=== PATIENT | female | born 1940 | race Caucasian/White ===

== ENCOUNTER 2017-09-07 08:00 | Outpatient (CLI) | payer MEDICARE, OTHER ==
[2017-09-07 19:00] LABS: BASOPHILS # (AUTO) 0.1 10^3/uL (0.0-0.1); EOSINOPHILS # (AUTO) 0.3 10^3/uL (0.0-0.7); EOSINOPHILS % (AUTO) 7.5 %; HGB - HEMOGLOBIN 12.4 g/dL (12.0-16.0); LYMPHOCYTES # (AUTO) 0.8 10^3/uL (1.5-3.5); LYMPHOCYTES % (AUTO) 20.9 %; MEAN CORPUSCULAR HEMOGLOBIN 27.2 pg (27.0-31.0); MEAN CORPUSCULAR VOLUME 84.8 fL (81.0-99.0); MEAN PLATELET VOLUME 9.9 fL (7.9-10.8); MONOCYTES # (AUTO) 0.3 10^3/uL (0.0-1.0); MONOCYTES % (AUTO) 7.8 %; NEUTROPHILS # (AUTO) 2.3 10^3/uL (1.5-6.6); NEUTROPHILS % (AUTO) 61.8 %; PLT - PLATELET COUNT 182 10^3/uL (130-450); RED BLOOD COUNT 4.56 10^6/uL (4.20-5.40); RED CELL DISTRIBUTION WIDTH 13.4 % (12.0-15.0); WHITE BLOOD COUNT 3.7 x10^3/uL (4.8-10.8)
[2017-09-07 19:15] LABS: ALBUMIN 4.8 g/dL (3.2-5.5); ALBUMIN/GLOBULIN RATIO 1.8 (1.0-2.2); ALKALINE PHOSPHATASE 38 IU/L (42-121); ALT ALANINE AMINOTRANSFERASE 32 IU/L (10-60); AST ASPARTATE AMINOTRANSFERASE 28 IU/L (10-42); BILIRUBIN,TOTAL 0.6 mg/dL (0.2-1.0); BUN - BLOOD UREA NITROGEN 23 mg/dL (6-20); CALCIUM 9.4 mg/dL (8.5-10.3); CARBON DIOXIDE - CO2 24 mmol/L (21-32); CHLORIDE 105 mmol/L (101-111); CHOL/HDL RATIO 3.4 (<4.4); CHOLESTEROL 131 mg/dL; CREATININE 1.2 mg/dL (0.4-1.0); GFR - MDRD 44 (>89); GLUCOSE 155 mg/dL (70-100); HDL CHOLESTEROL 39 mg/dL; LDL CHOLESTEROL,CALCULATED 57 mg/dL; LDL/HDL RATIO 1.5 (<4.4); SODIUM 137 mmol/L (135-145); TOTAL PROTEIN 7.5 g/dL (6.7-8.2); VLDL CHOLESTEROL 35 mg/dL
[2017-09-07 19:55] LABS: HEMOGLOBIN A1C 0.69 g/dL; HEMOGLOBIN A1C % 6.7 % (4.6-6.2)
== END 2017-09-07 08:01 | disposition home or self-care (01) ==
LOC: LAB.WCP 08:00
PROVIDERS: ATTEND Family Medicine
DX: I10 Essential (primary) hypertension (principal); E11.9 Type 2 diabetes mellitus without complications; E78.5 Hyperlipidemia, unspecified; E03.9 Hypothyroidism, unspecified
CPT/HCPCS: 36415; 80053; 80061; 82043; 83036; 83721; 84443; 85025

== ENCOUNTER 2018-04-30 08:00 | Outpatient (CLI) | payer MEDICARE, OTHER ==
[2018-04-30 12:35] LABS: MEAN CORPUSCULAR HGB CONC 33.1 g/dL (32.0-36.0); MEAN CORPUSCULAR VOLUME 84.6 fL (81.0-99.0); MEAN PLATELET VOLUME 9.7 fL (7.9-10.8); RED BLOOD COUNT 4.28 10^6/uL (4.20-5.40); WHITE BLOOD COUNT 3.5 x10^3/uL (4.8-10.8)
[2018-04-30 13:04] LABS: ALBUMIN 4.5 g/dL (3.2-5.5); ALBUMIN/GLOBULIN RATIO 1.5 (1.0-2.2); BILIRUBIN,TOTAL 0.7 mg/dL (0.2-1.0); CALCIUM 9.5 mg/dL (8.5-10.3); CREATININE 1.4 mg/dL (0.4-1.0); TOTAL PROTEIN 7.5 g/dL (6.7-8.2)
[2018-04-30 13:13] LABS: HB2 TOTAL 12.5 g/dL; HEMOGLOBIN A1C 0.64 g/dL; HEMOGLOBIN A1C % 6.8 % (4.6-6.2)
== END 2018-04-30 23:59 | disposition home or self-care (01) ==
LOC: LAB.WCP 08:00
PROVIDERS: ATTEND Nurse Practitioner
DX: E11.9 Type 2 diabetes mellitus without complications (principal); G62.9 Polyneuropathy, unspecified; I10 Essential (primary) hypertension
CPT/HCPCS: 36415; 80053; 82607; 83036; 85027

== ENCOUNTER 2018-05-06 13:42 | Outpatient (CLI) | payer MEDICARE, OTHER ==
--- NOTE | 2018-05-07 11:13 | DEXA Report ---
Reason: OSTEOPOROSIS NOS Procedure Date: 05/06/2018 Accession Number: [id number] / [id number] Procedure: DEX - Dexa Spine and/or Hip CPT Code: FULL RESULT: EXAM: Dexa Spine and/or Hip DATE: 05/06/2018 2:19 PM CLINICAL HISTORY: OSTEOPOROSIS NOS TECHNIQUE: Dual energy x-ray absorptiometry (DXA) was performed on a [employer] System. Regions measured are the AP Spine, femoral neck, and if needed forearm. COMPARISON: None. In accordance with the International Society for Clinical Densitometry (ISCD) guidelines, data from previous exams may be reanalyzed using current recommendations and techniques. This is done to allow a more accurate basis for comparison with the current study. FINDINGS: The data for the lumbar spine is as follows: BMD (g/cm/cm) T-SCORE Z-SCORE REGION L1 1.133 0.0 1.6 L2 1.179 -0.2 1.4 L3 0.963 -2.0 -0.4 L4 1.105 -0.8 0.8 TOTAL NOTE: All evaluable vertebrae are used for classification The data for the hip is as follows: BMD (g/cm/cm) T-SCORE Z-SCORE REGION Neck 0.716 -2.3 -0.4 TOTAL 0.808 -1.6 0.1 NOTE: The femoral neck or total proximal femur, whichever is lowest, is used for classification. IMPRESSION: THE WHO CLASSIFICATION BASED ON THE INTERNATIONAL REFERENCE STANDARD IS OSTEOPENIA. THE FRACTURE RISK IS INCREASED. RECOMMENDATION: Patients with diagnosis of osteoporosis or osteopenia should have regular bone mineral density assessment. For those eligible for Medicare, routine testing is allowed once every 2 years. Testing frequency can be increased for patients who have rapidly progressing disease or for those who are receiving medical therapy to restore bone mass. COMMENT: World Health Organization (WHO) definitions for osteoporosis and osteopenia: NORMAL BMD: T-score at -1.0 or higher, fracture risk is low OSTEOPENIA BMD: T-score between -1.0 and -2.5, fracture risk is increased. OSTEOPOROSIS BMD: T-score at -2.5 or lower, fracture risk is high. National Osteoporosis Foundation recommends: 1. Obtain adequate dietary calcium (at least 1200 mg per day) and vitamin D (400-800 international units per day). 2. Participate, as appropriate, in regular weightbearing and muscle-strengthening exercise. 3. Avoid tobacco use and reduce alcohol and caffeine intake. 4. For more detailed information see the website at www.NOF.org.
== END 2018-05-06 13:43 | disposition home or self-care (01) ==
LOC: DI 13:42
PROVIDERS: ATTEND Nurse Practitioner
DX: M85.88 Other specified disorders of bone density and structure, other site (principal)
CPT/HCPCS: 77080

== ENCOUNTER 2018-10-28 14:46 | Outpatient (CLI) | payer MEDICARE, OTHER ==
--- NOTE | 2018-10-28 15:38 | XRAY Report ---
Reason: KNEE JOINT PAIN,LEFT,ANKLE JOINT PAIN,LEFT Procedure Date: 10/28/2018 Accession Number: [id number] / [id number] Procedure: WCP - Ankle 2 View LT CPT Code: FULL RESULT: EXAM: LEFT ANKLE RADIOGRAPHY. EXAM DATE: 10/28/2018 02:58 PM. CLINICAL HISTORY: Knee joint pain, left, ankle joint pain, left. COMPARISON: None. TECHNIQUE: 2 views. FINDINGS: Bones: The fibula sideplate and screws are noted. No acute fracture is detected. Joints: No dislocation is seen. There is no mortise view, visualized portion of ankle mortise appears unremarkable. Soft Tissues: Normal. No soft tissue swelling. IMPRESSION: Normal 2 views of the ankle. If pathology of the ankle mortise is suspected, consider mortise view. RADIA
--- NOTE | 2018-10-28 15:38 | XRAY Report ---
Reason: KNEE JOINT PAIN,LEFT,ANKLE JOINT PAIN,LEFT Procedure Date: 10/28/2018 Accession Number: [id number] / [id number] Procedure: WCP - Knee 2 View LT CPT Code: FULL RESULT: EXAM: LEFT KNEE RADIOGRAPHY EXAM DATE: 10/28/2018 02:58 PM. CLINICAL HISTORY: Knee joint pain, left, ankle joint pain, left. COMPARISON: None. TECHNIQUE: 2 views. FINDINGS: Bones: Minimal superior patella osteophytosis is noted. No fractures or bone lesions. Joints: There is moderate narrowing of the weightbearing compartments. There is a joint effusion. Soft Tissues: Normal. No soft tissue swelling. IMPRESSION: Joint effusion and degenerative changes. RADIA
== END 2018-10-28 14:47 | disposition home or self-care (01) ==
LOC: DI.WCP 14:46
PROVIDERS: ATTEND Family Medicine
DX: M17.12 Unilateral primary osteoarthritis, left knee (principal); M25.572 Pain in left ankle and joints of left foot

== ENCOUNTER 2018-11-08 12:59 | Outpatient (CLI) | payer MEDICARE, OTHER ==
--- NOTE | 2018-11-08 13:51 | Ultrasound Report ---
Reason: PANCHAL'S CYST, LEFT KNEE Procedure Date: 11/08/2018 Accession Number: [id number] / [id number] Procedure: US - Ext Limited Non Vascular CPT Code: FULL RESULT: EXAM: RIGHT/LEFT UPPER EXTREMITY ULTRASOUND - LIMITED EXAM DATE: 11/08/2018 01:25 PM. CLINICAL HISTORY: Left popliteal fossa mass. COMPARISON: None. TECHNIQUE: Real-time scanning was performed with static images obtained. FINDINGS: There is a classic popliteal fossa Panchal's cyst measuring 7.6 x 3.2 x 4.5 cm diameter. No other finding. IMPRESSION: There is a 7.6 cm maximal diameter left popliteal fossa Panchal's cyst RADIA ADDENDUM: 11/19/18 07:58 The ultrasound performed is of the left lower extremity posterior knee region. EXAM: LEFT LOWER EXTREMITY ULTRASOUND, LIMITED. FINDINGS AND IMPRESSION ARE UNCHANGED.
== END 2018-11-08 13:00 | disposition home or self-care (01) ==
LOC: DI 12:59
PROVIDERS: ATTEND Family Medicine
DX: M71.22 Synovial cyst of popliteal space [Baker], left knee (principal)
CPT/HCPCS: 76882

== ENCOUNTER 2019-06-23 13:00 | Outpatient (CLI) | payer MEDICARE, OTHER ==
[2019-06-23 18:44] LABS: BASOPHILS # (AUTO) 0.1 10^3/uL (0.0-0.1); BASOPHILS % (AUTO) 1.2 %; EOSINOPHILS # (AUTO) 0.2 10^3/uL (0.0-0.7); EOSINOPHILS % (AUTO) 4.9 %; HGB - HEMOGLOBIN 11.6 g/dL (12.0-16.0); LYMPHOCYTES # (AUTO) 0.7 10^3/uL (1.5-3.5); LYMPHOCYTES % (AUTO) 16.1 %; MEAN CORPUSCULAR HGB CONC 30.4 g/dL (32.0-36.0); MEAN CORPUSCULAR VOLUME 88.8 fL (81.0-99.0); MEAN PLATELET VOLUME 11.6 fL (7.9-10.8); MONOCYTES # (AUTO) 0.3 10^3/uL (0.0-1.0); NEUTROPHILS % (AUTO) 70.6 %; PLT - PLATELET COUNT 196 10^3/uL (130-450); RED CELL DISTRIBUTION WIDTH 13.3 % (12.0-15.0); WHITE BLOOD COUNT 4.3 x10^3/uL (4.8-10.8)
[2019-06-23 19:06] LABS: HB2 TOTAL 11.9 g/dL; HEMOGLOBIN A1C 0.57 g/dL; HEMOGLOBIN A1C % 6.5 % (4.6-6.2)
[2019-06-23 19:14] LABS: ALBUMIN 4.4 g/dL (3.2-5.5); ALBUMIN/GLOBULIN RATIO 1.5 (1.0-2.2); ALKALINE PHOSPHATASE 26 IU/L (42-121); ALT ALANINE AMINOTRANSFERASE 29 IU/L (10-60); AST ASPARTATE AMINOTRANSFERASE 23 IU/L (10-42); BILIRUBIN,TOTAL 0.7 mg/dL (0.2-1.0); BUN - BLOOD UREA NITROGEN 30 mg/dL (6-20); CARBON DIOXIDE - CO2 27 mmol/L (21-32); CHLORIDE 104 mmol/L (101-111); CHOL/HDL RATIO 3.4 (<4.4); CHOLESTEROL 136 mg/dL; CREATININE 1.4 mg/dL (0.4-1.0); GFR - MDRD 36 (>89); GLUCOSE 172 mg/dL (70-100); HDL CHOLESTEROL 40 mg/dL; LDL CHOLESTEROL,CALCULATED 47 mg/dL; LDL/HDL RATIO 1.2 (<4.4); SODIUM 140 mmol/L (135-145); TOTAL PROTEIN 7.3 g/dL (6.7-8.2); VLDL CHOLESTEROL 49 mg/dL
== END 2019-06-23 23:59 | disposition home or self-care (01) ==
LOC: LAB.WCP 13:00
PROVIDERS: ATTEND Family Medicine
DX: E11.9 Type 2 diabetes mellitus without complications (principal)
CPT/HCPCS: 36415; 80053; 80061; 83036; 83721; 84443; 85025

== ENCOUNTER 2019-07-09 08:00 | Outpatient (CLI) | payer MEDICARE, OTHER | END 2019-07-09 23:59 | disposition home or self-care (01) | LOC: LAB.R 08:00 | PROVIDERS: ATTEND Family Medicine | DX: L72.3 Sebaceous cyst (principal) | CPT/HCPCS: 87070; 87077; 87181; 87205 ==

== ENCOUNTER 2020-02-06 08:00 | Outpatient (CLI) | payer MEDICARE, OTHER ==
[2020-02-06 13:23] LABS: HEMOGLOBIN A1c% 6.3 % (4.27-6.07)
[2020-02-06 13:37] LABS: ALBUMIN 4.5 g/dL (3.2-5.5); ALBUMIN/GLOBULIN RATIO 1.5 (1.0-2.2); ALKALINE PHOSPHATASE 27 IU/L (42-121); ALT ALANINE AMINOTRANSFERASE 24 IU/L (10-60); AST ASPARTATE AMINOTRANSFERASE 23 IU/L (10-42); BILIRUBIN,TOTAL 0.6 mg/dL (0.2-1.0); BUN - BLOOD UREA NITROGEN 23 mg/dL (6-20); CALCIUM 9.6 mg/dL (8.5-10.3); CARBON DIOXIDE - CO2 25 mmol/L (21-32); CHLORIDE 103 mmol/L (101-111); CHOL/HDL RATIO 3.3 (<4.4); CHOLESTEROL 123 mg/dL; CREATININE 1.1 mg/dL (0.4-1.0); GLUCOSE 112 mg/dL (70-100); HDL CHOLESTEROL 37 mg/dL; LDL CHOLESTEROL,CALCULATED 37 mg/dL; SODIUM 137 mmol/L (135-145); TOTAL PROTEIN 7.5 g/dL (6.7-8.2); VLDL CHOLESTEROL 49 mg/dL
[2020-02-06 13:40] LABS: CREATININE,URINE 82.4 mg/dL; MICROALBUMIN,URINE 1.4 mg/dL (0-300.0)
== END 2020-02-06 08:01 | disposition home or self-care (01) ==
LOC: LAB.WCP 08:00
PROVIDERS: ATTEND Family Medicine
DX: E11.9 Type 2 diabetes mellitus without complications (principal)
CPT/HCPCS: 36415; 80053; 80061; 82043; 82570; 83036; 83721

== ENCOUNTER 2020-08-11 10:11 | Outpatient (CLI) | payer MEDICARE, OTHER ==
--- NOTE | 2020-08-11 16:49 | XRAY Report ---
PROCEDURE: Pelvis 1 View INDICATIONS: LEFT HIP PAIN TECHNIQUE: 1 view(s) of the pelvis acquired. COMPARISON: None. FINDINGS: Bones: No fractures or dislocations. No suspicious bony lesions. Mild bilateral hip osseous hypertr ophy consistent with osteoarthritis. Lower lumbar spine degenerative disc changes.. Soft tissues: Visualized bowel gas pattern is normal. No suspicious soft tissue calcifications. IMPRESSION: 1. Mild bilateral hip osteoarthritis. 2. No fracture. No acute osseous lesion. If there persistent symptoms or continued clinical concern f or pathology, then repeat plain film radiographs (7-10 days) or advanced imaging (CT, MR, bone scan) should be considered for further evaluation. Reviewed by: Krista Ramsey MD, PhD on 08/11/2020 4:48 PM PDT Approved by: Krista Ramsey MD, PhD on 08/11/2020 4:48 PM PDT Station ID: [id number]
--- NOTE | 2020-08-11 16:52 | XRAY Report ---
PROCEDURE: Shoulder 2 View LT INDICATIONS: ADHESIVE CAPSULITIS TECHNIQUE: 2 views of the shoulder were acquired. COMPARISON: 3 view left shoulder 06/13/2016. 2 view chest 06/08/2015. FINDINGS: Bones: Status post left shoulder arthroplasty. No fractures or dislocations. No suspicious bony les ions. Visualized ribs appear intact. Soft tissues: No suspicious soft tissue calcifications. Numerous small calcifications over the visua lized left lung. IMPRESSION: 1. Status post left shoulder arthroplasty stable in appearance compared to 06/13/2016. 2. Left lung miliary disease stable where visualized compared to 06/08/2015. Reviewed by: Krista Ramsey MD, PhD on 08/11/2020 4:51 PM PDT Approved by: Krista Ramsey MD, PhD on 08/11/2020 4:51 PM PDT Station ID: [id number]
== END 2020-08-11 23:59 | disposition home or self-care (01) ==
LOC: DI.WCP 10:11
PROVIDERS: ATTEND Family Medicine
DX: M16.0 Bilateral primary osteoarthritis of hip (principal); Z96.612 Presence of left artificial shoulder joint; E11.9 Type 2 diabetes mellitus without complications
CPT/HCPCS: 36415; 80053; 80061; 83036; 83721; 84443; 85025

== ENCOUNTER 2020-08-11 10:56 | Outpatient (CLI) | payer MEDICARE, OTHER ==
[2020-08-11 17:45] LABS: BASOPHILS % (AUTO) 1.1 %; EOSINOPHILS # (AUTO) 0.2 10^3/uL (0.0-0.7); EOSINOPHILS % (AUTO) 4.4 %; HCT - HEMATOCRIT 38.8 % (37.0-47.0); LYMPHOCYTES # (AUTO) 0.5 10^3/uL (1.5-3.5); LYMPHOCYTES % (AUTO) 14.7 %; MEAN CORPUSCULAR HGB CONC 30.9 g/dL (32.0-36.0); MEAN CORPUSCULAR VOLUME 90.4 fL (81.0-99.0); MEAN PLATELET VOLUME 11.5 fL (7.9-10.8); MONOCYTES # (AUTO) 0.4 10^3/uL (0.0-1.0); MONOCYTES % (AUTO) 9.5 %; NEUTROPHILS # (AUTO) 2.6 10^3/uL (1.5-6.6); PLT - PLATELET COUNT 158 10^3/uL (130-450); RED BLOOD COUNT 4.29 10^6/uL (4.20-5.40); RED CELL DISTRIBUTION WIDTH 12.8 % (12.0-15.0); WHITE BLOOD COUNT 3.7 x10^3/uL (4.8-10.8)
[2020-08-11 18:02] LABS: ALBUMIN 4.4 g/dL (3.2-5.5); ALBUMIN/GLOBULIN RATIO 1.4 (1.0-2.2); ALKALINE PHOSPHATASE 29 IU/L (42-121); ALT ALANINE AMINOTRANSFERASE 24 IU/L (10-60); AST ASPARTATE AMINOTRANSFERASE 19 IU/L (10-42); BILIRUBIN,TOTAL 0.5 mg/dL (0.2-1.0); BUN - BLOOD UREA NITROGEN 27 mg/dL (6-20); CALCIUM 9.9 mg/dL (8.5-10.3); CARBON DIOXIDE - CO2 24 mmol/L (21-32); CHLORIDE 103 mmol/L (101-111); CHOL/HDL RATIO 3.8 (<4.4); CHOLESTEROL 135 mg/dL; CREATININE 1.4 mg/dL (0.4-1.0); GFR - MDRD 36 (>89); GLUCOSE 134 mg/dL (70-100); HDL CHOLESTEROL 36 mg/dL; LDL CHOLESTEROL,CALCULATED 44 mg/dL; LDL/HDL RATIO 1.2 (<4.4); POTASSIUM 4.2 mmol/L (3.5-5.0); SODIUM 138 mmol/L (135-145); TOTAL PROTEIN 7.5 g/dL (6.7-8.2); TRIGLYCERIDES 275 mg/dL; VLDL CHOLESTEROL 55 mg/dL
[2020-08-11 18:13] LABS: THYROID STIMULATING HORMONE 0.69 uIU/mL (0.34-5.60)
[2020-08-11 19:10] LABS: ESTIMATED AVERAGE GLUCOSE 134 mg/dL (70-100); HEMOGLOBIN A1c% 6.3 % (4.27-6.07)
== END 2020-08-11 10:57 | disposition home or self-care (01) ==
LOC: LAB.N 10:56
PROVIDERS: ATTEND Family Medicine
DX: E11.9 Type 2 diabetes mellitus without complications (principal)
CPT/HCPCS: 36415; 80053; 80061; 83036; 83721; 84443; 85025

== ENCOUNTER 2020-10-11 08:05 | Outpatient (CLI) | payer MEDICARE, OTHER ==
--- NOTE | 2020-10-11 15:06 | XRAY Report ---
PROCEDURE: Lumbar Spine Complete INDICATIONS: LUMBAR SPONDYLOSIS TECHNIQUE: 5 views of the lumbar spine were acquired. COMPARISON: None. FINDINGS: Bones: 5 [id number]-lqu-hlzmyuk vertebrae are present. There is trace retrolisthesis of L3 on L4, L5 on S1 . Multilevel moderate to severe disc space narrowing is present throughout the lumbar spine. Severe f oraminal narrowing is noted at L1-L2, L4-5, L5-S1, moderate to severe L2-3. Nonbridging anterior oste ophytes are present. No vertebral body compression fractures. No suspicious bony lesions. Soft tissues: Overlying bowel gas pattern is normal. No suspicious soft tissue calcifications. IMPRESSION: Multilevel degenerative changes as above. Reviewed by: Brit Gilliland MD on 10/11/2020 3:04 PM PDT Approved by: Brit Gilliland MD on 10/11/2020 3:04 PM PDT Station ID: [id number]
== END 2020-10-11 23:59 | disposition home or self-care (01) ==
LOC: DI.N 08:05
PROVIDERS: ATTEND Orthopaedic Surgery
DX: M47.816 Spondylosis without myelopathy or radiculopathy, lumbar region (principal); M43.16 Spondylolisthesis, lumbar region; M43.17 Spondylolisthesis, lumbosacral region; M51.36 Other intervertebral disc degeneration, lumbar region; M48.061 Spinal stenosis, lumbar region without neurogenic claudication; M51.37 Other intervertebral disc degeneration, lumbosacral region; M48.07 Spinal stenosis, lumbosacral region; M47.817 Spondylosis without myelopathy or radiculopathy, lumbosacral region

== ENCOUNTER 2021-02-11 10:37 | Outpatient (CLI) | payer MEDICARE, OTHER ==
[2021-02-11 20:22] LABS: ALBUMIN 4.3 g/dL (3.2-5.5); ALBUMIN/GLOBULIN RATIO 1.3 (1.0-2.2); BILIRUBIN,TOTAL 0.8 mg/dL (0.2-1.0); CALCIUM 9.4 mg/dL (8.5-10.3); CREATININE 1.6 mg/dL (0.4-1.0); POTASSIUM 4.7 mmol/L (3.5-5.0); TOTAL PROTEIN 7.5 g/dL (6.7-8.2)
== END 2021-02-11 23:59 | disposition home or self-care (01) ==
LOC: LAB.WCP 10:37
PROVIDERS: ATTEND Family Medicine
DX: E11.9 Type 2 diabetes mellitus without complications (principal)
CPT/HCPCS: 36415; 80053

== ENCOUNTER 2021-09-20 11:15 | Outpatient (CLI) | payer MEDICARE, OTHER ==
[2021-09-20 17:52] LABS: BASOPHILS # (AUTO) 0.1 10^3/uL (0.0-0.1); BASOPHILS % (AUTO) 1.3 %; EOSINOPHILS # (AUTO) 0.2 10^3/uL (0.0-0.7); EOSINOPHILS % (AUTO) 5.2 %; HCT - HEMATOCRIT 39.9 % (37.0-47.0); HGB - HEMOGLOBIN 12.5 g/dL (12.0-16.0); LYMPHOCYTES # (AUTO) 0.8 10^3/uL (1.5-3.5); LYMPHOCYTES % (AUTO) 19.9 %; MEAN CORPUSCULAR HGB CONC 31.3 g/dL (32.0-36.0); MEAN CORPUSCULAR VOLUME 89.3 fL (81.0-99.0); MEAN PLATELET VOLUME 12.1 fL (7.9-10.8); MONOCYTES # (AUTO) 0.4 10^3/uL (0.0-1.0); MONOCYTES % (AUTO) 10.2 %; NEUTROPHILS # (AUTO) 2.4 10^3/uL (1.5-6.6); NEUTROPHILS % (AUTO) 62.9 %; PLT - PLATELET COUNT 168 10^3/uL (130-450); RED BLOOD COUNT 4.47 10^6/uL (4.20-5.40); RED CELL DISTRIBUTION WIDTH 12.8 % (12.0-15.0); WHITE BLOOD COUNT 3.8 x10^3/uL (4.8-10.8)
[2021-09-20 18:11] LABS: ALBUMIN 4.4 g/dL (3.2-5.5); ALBUMIN/GLOBULIN RATIO 1.4 (1.0-2.2); ALKALINE PHOSPHATASE 32 IU/L (42-121); ALT ALANINE AMINOTRANSFERASE 26 IU/L (10-60); AST ASPARTATE AMINOTRANSFERASE 22 IU/L (10-42); BILIRUBIN,TOTAL 0.5 mg/dL (0.2-1.0); BUN - BLOOD UREA NITROGEN 25 mg/dL (6-20); CALCIUM 9.4 mg/dL (8.5-10.3); CARBON DIOXIDE - CO2 24 mmol/L (21-32); CHLORIDE 108 mmol/L (101-111); CHOL/HDL RATIO 4.8 (<4.4); CHOLESTEROL 163 mg/dL; CREATININE 1.4 mg/dL (0.4-1.0); GFR - MDRD 36 (>89); GLUCOSE 163 mg/dL (70-100); HDL CHOLESTEROL 34 mg/dL; LDL CHOLESTEROL,CALCULATED 68 mg/dL; POTASSIUM 4.9 mmol/L (3.5-5.0); SODIUM 139 mmol/L (135-145); TOTAL PROTEIN 7.5 g/dL (6.7-8.2); TRIGLYCERIDES 303 mg/dL; VLDL CHOLESTEROL 61 mg/dL
[2021-09-20 18:12] LABS: CREATININE,URINE 121.8 mg/dL; MICROALBUM/CREATININE RATIO,UR 26.3 ug/mg (<30.0); MICROALBUMIN,URINE 3.2 mg/dL (0-300.0)
[2021-09-20 20:50] LABS: ESTIMATED AVERAGE GLUCOSE 154 mg/dL (70-100)
== END 2021-09-20 11:16 | disposition home or self-care (01) ==
LOC: LAB.N 11:15
PROVIDERS: ATTEND Family Medicine
DX: E11.9 Type 2 diabetes mellitus without complications (principal)
CPT/HCPCS: 36415; 80053; 80061; 82043; 82570; 83036; 83721; 85025

== ENCOUNTER 2022-02-08 14:33 | Outpatient (CLI) | payer MEDICARE, OTHER ==
--- NOTE | 2022-02-08 19:06 | Ultrasound Report ---
PROCEDURE: Chest INDICATIONS: BURSITIS LEFT SHOULDER TECHNIQUE: Real-time scanning of the left shoulder was performed with imaging documentation. COMPARISON: None. FINDINGS: Focused ultrasound examination of left shoulder above the level of the clavicle shows and an echoic s tructure with internal debris and thin well-circumscribed wall measures 4.3 x 3.6 x 2.5 cm in size wi th a volume of 20 cc. There is no internal vascularity. This area is not definitively connected to th e acromioclavicular joint or glenohumeral joint. IMPRESSION: Finding may represent a complex ganglion cyst in left shoulder soft tissue versus bursitis. Consider MRI of shoulder for further evaluation if indicated. Reviewed by: Abdifatah Steel MD on 02/08/2022 7:05 PM PDT Approved by: Abdifatah Steel MD on 02/08/2022 7:05 PM PDT Station ID: [id number]
== END 2022-02-08 14:34 | disposition home or self-care (01) ==
LOC: DI 14:33
PROVIDERS: ATTEND Physician Assistant Medical
DX: M75.52 Bursitis of left shoulder (principal)

== ENCOUNTER 2022-03-28 10:01 | Outpatient (CLI) | payer MEDICARE, OTHER ==
[~2022-03-28 10:01] MED LIST: GADOBUTROL 7.5 MMOL/7.5 ML VIAL ONE
[2022-03-28] MEDS ORDERED: GADOBUTROL 10 MMOL/10 ML VIAL ONE (10:16)
[2022-03-28 10:19] LABS: CALCIUM 9.6 mg/dL (8.5-10.3); CREATININE 1.4 mg/dL (0.4-1.0); POTASSIUM 4.3 mmol/L (3.5-5.0)
[2022-03-28] MEDS ORDERED: GADOBUTROL 10 MMOL/10 ML VIAL IVP ONE (14:38)
--- NOTE | 2022-03-28 15:57 | MRI Report ---
PROCEDURE: SHOULDER W/WO - LT INDICATIONS: MASS OF LEFT SHOULDER JOINT CONTRAST: gadavist 7.3ml TECHNIQUE: Noncontrast oblique coronal T1 spin echo and T2 fast spin echo with fat saturation, oblique sagittal T1 spin echo and T2 fast spin echo with fat saturation, axial T1 spin echo and T2 fast spin echo with fat saturation through the shoulder. Post-contrast oblique coronal, oblique sagittal, and axial T1 spin echo with fat saturation through the shoulder. COMPARISON: Ultrasound of chest dated 02/08/2022 FINDINGS: Image quality: Diagnostic. Significant susceptibility artifacts from left shoulder prosthesis is see n. Rotator cuff: Patient is status post left shoulder arthroplasty. Markedly limited evaluation of rotat or cuff tendons shows no gross full-thickness tendon rupture. There is suggestion of mild to moderate supraspinatus and possibly infraspinatus muscle atrophy. Bones and bursae: Patient is status post shoulder arthroplasty. No gross marrow edema. No acute fract ure or dislocation. No area of abnormal intraosseous enhancement is seen. Capsule and soft tissues: A marker is placed at patient's reported area of palpable mass over superio r aspect of distal clavicle/acromioclavicular joint. There is a well-circumscribed and fairly homogen eously T1 hypointense and T2 hyperintense structure in subcutaneous soft tissue superior to distal cl avicular shaft in acromioclavicular joint measures up to 4.7 x 2.4 x 3.3 cm in size with areas of int ernal thin septations. After IV contrast infusion, no enhancement is noted within this structure. No other area of soft tissue mass or fluid collection is seen. No area of abnormal enhancement is noted. IMPRESSION: 1. Patient is status post left shoulder arthroplasty with significant susceptibility artifact from sh oulder prosthesis limits evaluation of adjacent osseous and soft tissue structures. 2. Suggestion of a large ganglion cyst over superior aspect of distal clavicle/acromioclavicular join t and measures 4.7 x 2.4 x 3.3 cm in size with thin internal septations. No enhancing soft tissue mas s is seen. 3. No gross acute fracture or dislocation. No area of abnormal intraosseous enhancement. 4. No definite full-thickness rotator cuff tendon rupture is seen. Suggestion of moderate supraspinat us and possibly infraspinatus muscle atrophy. Reviewed by: Abdifatah Posey MD on 03/28/2022 3:55 PM PDT Approved by: Abdifatah Posey MD on 03/28/2022 3:55 PM PDT Station ID: [id number]
== END 2022-03-28 10:02 | disposition home or self-care (01) ==
LOC: LAB 10:01
PROVIDERS: ATTEND Family Medicine
DX: E11.9 Type 2 diabetes mellitus without complications (principal); M75.52 Bursitis of left shoulder; M25.812 Other specified joint disorders, left shoulder; Z96.612 Presence of left artificial shoulder joint
CPT/HCPCS: 36415; 73223; 80048; A9585

== ENCOUNTER 2022-06-16 13:00 | Outpatient (CLI) | payer MEDICARE, OTHER ==
--- NOTE | 2022-06-20 15:37 | Mammography Report ---
BILATERAL DIGITAL SCREENING MAMMOGRAM 3D/2D: 06/16/2022 CLINICAL: Routine screening. Comparison is made to exams dated: 08/11/2019 mammogram - [facility], 10/05/2015 mammogram, 02/17/20 10 mammogram, and 10/09/2008 mammogram - [facility]. There are scattered areas of fibroglandular density in both breasts (category b / 25%-50% glandular t issue). There are benign vascular calcifications in both breasts. No significant masses, calcifications, or other findings are seen in either breast. There has been no significant interval change. IMPRESSION: BENIGN There is no mammographic evidence of malignancy. A 1 year screening mammogram is recommended. Based on the Tyrer Cuzick model (a risk assessment model) the patients lifetime risk is 0.5% and her 10 year risk is 0.0%. According to the ACR, ACS, and NCCN guidelines, an annual breast MRI exam catia g with mammogram is recommended if the patients lifetime risk is 20% or greater. This exam was interpreted at Station ID: [id number]. NOTE: For mammograms, a report in lay terms will be sent to the patient. Approximately 15% of breast malignancies will not be visualized mammographically. In the management of a palpable breast mass, a negative mammogram must not discourage biopsy of a clinically suspicious lesion. Electronically Signed By: Jeremy fritz/jo:06/19/2022 10:06:23 ACR BI-RADS Category 2: Benign Finding(s) 3342F PARENCHYMAL PATTERN: (A) - The breast(s) demonstrate(s) scattered fibroglandular densities. BI-RADS CATEGORY: (2) - 2 RECOMMENDATION: (ANNUAL) - Recommend routine annual screening mammography. [id number] 1 year screening LATERALITY: (B)
== END 2022-06-16 13:01 | disposition home or self-care (01) ==
LOC: DI 13:00
DX: Z12.31 Encounter for screening mammogram for malignant neoplasm of breast (principal)

== ENCOUNTER 2022-07-11 14:56 | Outpatient (CLI) | payer MEDICARE, OTHER ==
--- NOTE | 2022-07-12 09:39 | XRAY Report ---
PROCEDURE: Shoulder 3 View LT INDICATIONS: LEFT SHOULDER PAIN TECHNIQUE: 4 views of the shoulder were acquired. COMPARISON: MRI left shoulder with and without, 03/28/2022. X-ray left shoulder, 08/11/2020 and 017. FINDINGS: Bones: No fractures or dislocations. Left shoulder arthroplasty is stable alignment and appearance. Moderate acromioclavicular joint degeneration. No suspicious bony lesions. Visualized ribs appear in tact. Soft tissues: Innumerable calcified nodules in left lung are again noted. IMPRESSION: 1. Left shoulder arthroplasty with stable alignment and appearance. 2. Moderate acromioclavicular joint osteoarthritis. 3. Innumerable calcified nodules in left lung. Reviewed by: Najma Wells MD on 07/12/2022 9:38 AM PST Approved by: Najma Wells MD on 07/12/2022 9:38 AM PST Station ID: [id number]
== END 2022-07-11 14:57 | disposition home or self-care (01) ==
LOC: DI.WOS 14:56
PROVIDERS: ATTEND Physician Assistant Surgical
DX: M19.012 Primary osteoarthritis, left shoulder (principal); Z96.612 Presence of left artificial shoulder joint; R91.8 Other nonspecific abnormal finding of lung field

== ENCOUNTER 2022-08-01 11:27 | Outpatient (CLI) | payer MEDICARE, OTHER ==
[2022-08-01 18:54] LABS: BASOPHILS # (AUTO) 0.1 10^3/uL (0.0-0.1); BASOPHILS % (AUTO) 1.1 %; EOSINOPHILS # (AUTO) 0.3 10^3/uL (0.0-0.7); EOSINOPHILS % (AUTO) 6.2 %; HCT - HEMATOCRIT 37.3 % (37.0-47.0); HGB - HEMOGLOBIN 11.5 g/dL (12.0-16.0); LYMPHOCYTES # (AUTO) 0.8 10^3/uL (1.5-3.5); LYMPHOCYTES % (AUTO) 17.7 %; MEAN CORPUSCULAR HEMOGLOBIN 27.4 pg (27.0-31.0); MEAN CORPUSCULAR HGB CONC 30.8 g/dL (32.0-36.0); MEAN CORPUSCULAR VOLUME 88.8 fL (81.0-99.0); MEAN PLATELET VOLUME 11.8 fL (7.9-10.8); MONOCYTES # (AUTO) 0.4 10^3/uL (0.0-1.0); MONOCYTES % (AUTO) 9.4 %; NEUTROPHILS # (AUTO) 2.9 10^3/uL (1.5-6.6); NEUTROPHILS % (AUTO) 65.4 %; PLT - PLATELET COUNT 162 10^3/uL (130-450); RED CELL DISTRIBUTION WIDTH 13.2 % (12.0-15.0); WHITE BLOOD COUNT 4.4 x10^3/uL (4.8-10.8)
[2022-08-01 19:10] LABS: ALBUMIN 4.2 g/dL (3.2-5.5); ALBUMIN/GLOBULIN RATIO 1.4 (1.0-2.2); ALKALINE PHOSPHATASE 33 IU/L (42-121); ALT ALANINE AMINOTRANSFERASE 21 IU/L (10-60); AST ASPARTATE AMINOTRANSFERASE 20 IU/L (10-42); BILIRUBIN,TOTAL 0.4 mg/dL (0.2-1.0); BUN - BLOOD UREA NITROGEN 33 mg/dL (6-20); CALCIUM 9.6 mg/dL (8.5-10.3); CARBON DIOXIDE - CO2 24 mmol/L (21-32); CHLORIDE 107 mmol/L (101-111); CHOLESTEROL 168 mg/dL; CREATININE 1.4 mg/dL (0.4-1.0); GFR - MDRD 36 (>89); GLUCOSE 146 mg/dL (70-100); HDL CHOLESTEROL 28 mg/dL; POTASSIUM 4.5 mmol/L (3.5-5.0); SODIUM 140 mmol/L (135-145); TOTAL PROTEIN 7.2 g/dL (6.7-8.2); TRIGLYCERIDES 597 mg/dL
[2022-08-01 19:17] LABS: THYROID STIMULATING HORMONE 0.4 uIU/mL (0.34-5.60)
[2022-08-01 19:36] LABS: LDL CHOLESTEROL,DIRECT 52 mg/dL; LDLD/HDL RATIO 1.9 (<4.4)
[2022-08-01 20:37] LABS: ESTIMATED AVERAGE GLUCOSE 131 mg/dL (70-100); HEMOGLOBIN A1c% 6.2 % (4.27-6.07)
== END 2022-08-01 11:28 | disposition home or self-care (01) ==
LOC: LAB.N 11:27
PROVIDERS: ATTEND Physician Assistant Medical
DX: E11.22 Type 2 diabetes mellitus with diabetic chronic kidney disease (principal); N18.32 Chronic kidney disease, stage 3b; E03.9 Hypothyroidism, unspecified
CPT/HCPCS: 36415; 80053; 80061; 83036; 83721; 84443; 85025

== ENCOUNTER 2022-11-24 09:55 | Outpatient (CLI) | payer MEDICARE, OTHER ==
[2022-11-24 12:36] LABS: ALBUMIN 4.1 g/dL (3.2-5.5); ALBUMIN/GLOBULIN RATIO 1.2 (1.0-2.2); ALKALINE PHOSPHATASE 33 IU/L (42-121); ALT ALANINE AMINOTRANSFERASE 22 IU/L (10-60); AST ASPARTATE AMINOTRANSFERASE 19 IU/L (10-42); BILIRUBIN,TOTAL 0.7 mg/dL (0.2-1.0); BUN - BLOOD UREA NITROGEN 29 mg/dL (6-20); CALCIUM 9.5 mg/dL (8.5-10.3); CARBON DIOXIDE - CO2 27 mmol/L (21-32); CHLORIDE 106 mmol/L (101-111); CHOL/HDL RATIO 4.3 (<4.4); CHOLESTEROL 146 mg/dL; CREATININE 1.4 mg/dL (0.4-1.0); GFR - MDRD 36 (>89); GLUCOSE 151 mg/dL (70-100); HDL CHOLESTEROL 34 mg/dL; LDL CHOLESTEROL,CALCULATED 68 mg/dL; POTASSIUM 5.2 mmol/L (3.5-5.0); SODIUM 139 mmol/L (135-145); TOTAL PROTEIN 7.4 g/dL (6.7-8.2); TRIGLYCERIDES 221 mg/dL; VLDL CHOLESTEROL 44 mg/dL
[2022-11-24 12:42] LABS: ESTIMATED AVERAGE GLUCOSE 134 mg/dL (70-100); HEMOGLOBIN A1c% 6.3 % (4.27-6.07)
== END 2022-11-24 09:56 | disposition home or self-care (01) ==
LOC: LAB.N 09:55
PROVIDERS: ATTEND Physician Assistant Medical
DX: E11.9 Type 2 diabetes mellitus without complications (principal)
CPT/HCPCS: 36415; 80053; 80061; 83036; 83721

== ENCOUNTER 2022-11-25 12:26 | Outpatient (CLI) | payer MEDICARE, OTHER ==
[2022-11-25 19:34] LABS: CALCIUM 9.5 mg/dL (8.5-10.3); CREATININE 1.4 mg/dL (0.4-1.0); POTASSIUM 4.9 mmol/L (3.5-5.0)
== END 2022-11-25 12:27 | disposition home or self-care (01) ==
LOC: LAB.N 12:26
PROVIDERS: ATTEND Family Medicine
DX: E87.5 Hyperkalemia (principal)
CPT/HCPCS: 36415; 80048

== ENCOUNTER 2023-08-16 08:00 | Outpatient (CLI) | payer MEDICARE, OTHER ==
[2023-08-16 18:35] LABS: BILIRUBIN,URINE NEGATIVE (NEGATIVE); GLUCOSE, URINE (UA) NEGATIVE (NEGATIVE); KETONES,URINE (UA) NEGATIVE (NEGATIVE); LEUKOCYTE ESTERASE, URINE SMALL (NEGATIVE); NITRITE,URINE POSITIVE (NEGATIVE); OCCULT BLOOD,URINE NEGATIVE (NEGATIVE); PROTEIN,URINE NEGATIVE (NEGATIVE); UROBILINOGEN,URINE 0.2 (NORMAL) E.U./dL (NORMAL)
[2023-08-16 18:38] LABS: CLARITY,URINE HAZY (CLEAR)
[2023-08-16 19:00] LABS: BACTERIA,URINE Moderate /HPF (None Seen); RBC,URINE 0-5 /HPF (0-5); SQUAMOUS EPITHELIAL CELL,UR RARE Squamous (<= Few); WBC,URINE >25 /HPF (0-5)
== END 2023-08-16 23:58 | disposition home or self-care (01) ==
LOC: LAB.N 08:00
PROVIDERS: ATTEND Nurse Practitioner
DX: R35.0 Frequency of micturition (principal)
CPT/HCPCS: 81001; 87077; 87086; 87181

== ENCOUNTER 2023-10-02 16:15 | Emergency (ER) | payer MEDICARE, OTHER ==
--- NOTE | 2023-10-02 16:40 | ED Physician Documentation ---
History of Present Illness - Stated complaint Stated Complaint: GLF - Chief complaint Chief Complaint: Trauma Hd/Nk - History obtained from History obtained from: Patient, EMS - History of Present Illness Timing: Today Pain level max: 4 Pain level now: 4 - Additonal information Additional information: Patient is an 83-year-old female who presents to the emergency department after a trip and fall today at the [facility]. She states she was picking up her medications when she tripped fell and injured her right knee and left side of her face. Worse with movement, better with rest. Does not take blood thinners. No lacerations. No numbness or tingling. Review of Systems Constitutional: denies: Fever, Chills GI: denies: Vomiting, Diarrhea Skin: denies: Rash Musculoskeletal: denies: Back pain Neurologic: reports: Headache, Head injury. denies: Syncope, Seizure, Confused, LOC PD PAST MEDICAL HISTORY - Past Medical History Cardiovascular: Hypertension Respiratory: None Endocrine/Autoimmune: Type 2 diabetes GI: GERD : None HEENT: Chronic hearing loss Psych: None Musculoskeletal: None Derm: None - Past Surgical History Ortho: Shoulder arthroplasty /COAL GASIFICATION TECHNICIAN: Tubal ligation HEENT: Cataracts - Present Medications Home Medications: Ambulatory Orders Medication Instructions Recorded Confirmed Calcium Carbonate/Vitamin D3 1 tab PO BID 03/10/15 01/10/16 [Calcium 600-Vit D3 200 Tablet] Insulin Glargine,Hum.rec.anlog 15 units SQ QPM 03/10/15 01/10/16 [Lantus] Levothyroxine [Synthroid] 75 mcg PO DAILY 03/10/15 01/10/16 Simvastatin [Zocor] 20 mg PO DAILY 03/10/15 01/10/16 Telmisartan [Micardis] 40 mg PO DAILY 03/10/15 01/10/16 metFORMIN [Glucophage] 500 mg PO BID 03/10/15 01/10/16 Acetaminophen [Tylenol] 650 - 975 mg PO Q4HR PRN #0 tablet 01/12/16 Cyclobenzaprine [Flexeril] 5 mg PO Q8HR PRN #10 tablet 01/12/16 diphenhydrAMINE [Benadryl] 25 mg PO Q6H PRN #0 capsule 01/12/16 HYDROcod/ACETAM 5/325 [[place] 5/325] 1 - 2 ea PO Q6H PRN #14 tablet 10/02/23 Ondansetron Odt [Zofran] 4 mg TL Q6H PRN #10 tablet 10/02/23 - Allergies Allergies/Adverse Reactions: Allergies Allergy/AdvReac Type Severity Reaction Status Date / Time amoxicillin trihydrate * Allergy Unknown Verified 10/02/23 17:19 [From Augmentin] cephalexin Allergy Unknown Verified 10/02/23 17:19 potassium clavulanate * Allergy Unknown Verified 10/02/23 17:19 [From Augmentin] hydrocodone AdvReac Nausea Verified 10/02/23 17:19 - Social History Does the pt smoke?: No Smoking Status: Never smoker Does the pt drink ETOH?: No Does the pt have substance abuse?: No PD ED PE NORMAL - Vitals Vital signs reviewed: Yes - General General: Alert and oriented X 3, No acute distress - HEENT HEENT: PERRL, Pharynx benign, Dentition benign, Other (No scalp hematomas, but does have periorbital bruising and abrasions near the left orbit. There is tenderness at this site as well. Otherwise normal examination of the face.) - Neck Neck: Supple, no meningeal sign, Other (Mild upper C-spine tenderness to palpation. No step-off or deformity.) - Cardiac Cardiac: RRR, Strong equal pulses - Respiratory Respiratory: No respiratory distress, Clear bilaterally - Abdomen Abdomen: Soft, Non tender, Non distended - Back Back: No spinal TTP - Derm Derm: Warm and dry - Extremities Extremities: Other (There is tenderness over the right patella. ACL, MCL, PCL, LCL are intact. Limited range of motion secondary to pain. There is swelling at the right knee as well. Otherwise normal examination of all major joints of the bilateral upper and lower extremities.) - Neuro Neuro: Alert and oriented X 3, depot agent 2-12 intact, No motor deficit, No sensory deficit, Normal speech Eye Opening: Spontaneous Motor: Obeys Commands Verbal: Oriented GCS Score: 15 - Psych Psych: Normal mood, Normal affect Results - Vitals Vitals: Vital Signs - 24 hr 10/02/23 10/02/23 16:23 17:57 Temperature 36.1 C L Heart Rate 92 92 Respiratory 18 18 Rate Blood Pressure 165/89 H 164/92 H O2 Saturation 98 99 Oxygen O2 Source Room air - Rads (name of study) Head CT Relevant Findings:: Final report received, See rad report Maxillofacial CT Relevant Findings:: Final report received, See rad report Cervical spine CT Relevant Findings:: Final report received, See rad report Right knee x-ray Relevant Findings:: Final report received, See rad report PD Medical Decision Making - ED course Complexity details: reviewed results, re-evaluated patient, considered differential, d/w patient, d/w family, d/w data processing consultant (Dr. Bess, reviewed xrays and spoke on the phone) ED course: No acute findings on head CT, maxillofacial CT, cervical spine CT. Her right knee x-ray is consistent with a patellar fracture. Discussed the case with Dr. Bess, orthopedics, recommends a knee immobilizer and follow-up in clinic. Patient states she has 2 walkers that she can use at home. Neurovascular intact. Unable to clearly palpate her patellar tendon, unclear if this is due to a patellar tendon rupture or the fracture. Neurovascular intact. Patient is ambulating well. Will prescribe pain medications as needed for home. Patient and family counseled regarding signs and symptoms for which I believe and urgent re-evaluation would be necessary. Patient with good understanding of and agreement to plan and is comfortable going home at this time This document was made in part using voice recognition software. While efforts are made to proofread this document, sound alike and grammatical errors may occur. Departure - Departure Disposition: 01 Home, Self Care Clinical Impression: Patella fracture Qualifiers: Encounter type: initial encounter Fracture type: closed Fracture morphology: unspecified fracture morphology Fracture alignment: nondisplaced Laterality: ri ght Qualified Code(s): S82.001A - Unspecified fracture of right patella, initial encounter for closed fracture Condition: Good Instructions: ED Fx Patella Follow-Up: Sachi Connelly PA-C [Primary Care Provider] - [facility] [Provider Group] - Tomorrow Prescriptions: HYDROcod/ACETAM 5/325 [[place] 5/325] 1 - 2 ea PO Q6H PRN #14 tablet PRN Reason: Pain Ondansetron Odt [Zofran] 4 mg TL Q6H PRN #10 tablet PRN Reason: Nausea / Vomiting Comments: Call the orthopedic clinic tomorrow for a follow-up appointment. I spoke with Dr. Bess today. They will schedule you usually within the next several days to a week. Your prescriptions were sent to [email or web address] in [place]. You have a fractured patella. Please stay in the knee immobilizer. Please use a walker to help you ambulate. Return if you worsen. I am prescribing a short course of narcotic pain medication for you. These are potentially dangerous and addictive medications that should be used carefully. These medications may constipate you. Take an iwkr-fsg-jsqptmb stool softener (docusate) twice daily with plenty of water while taking these medications. If you go 24 hours without a bowel movement, take wdmo-aps-lupdpvq miralax, per package instructions. Do not drink or drive while taking these medications. If you received narcotic or sedating medications while in the emergency department, do not drive for 24 hours. Store this medication in a safe, secure place and out of reach of children. It is a violation of federal law to give or sell this medication to another person or to use in a manner other than prescribed. The ED will not refill narcotic prescriptions, including prescriptions lost or stolen. To dispose of unwanted medications: 1. [facility] [address] [facility] in [place] has a medication drop box. They accept prescription medications (in pill form) Sunday through Sunday 9:00 a.m. to 5:00 p.m. 2. The [facility] [employer] accepts prescription medications (in pill form only) for disposal year round. Call for more information. 3. Contact the [facility] for the next [facility] sponsored prescription drug collection event. , [phone], or [phone]; Forms: PCP List Discharge Date/Time: 10/02/23 17:57
--- NOTE | 2023-10-02 16:55 | XRAY Report ---
PROCEDURE: Knee 4+V RT INDICATIONS: fall, knee pain TECHNIQUE: 4 views of the knee(s) were acquired. COMPARISON: X-ray knee 01/14/2022 FINDINGS: Bones: Lucencies are present within the patella best seen on lateral view.. No suspicious bony lesi ons. Moderate to severe tricompartmental arthritic change progressive. It is most severe in the med ial compartment. Periarticular osteophytes are present. No erosions. Soft tissues: Large knee joint effusion. No suspicious soft tissue calcifications or masses. Chondr ocalcinosis is present. IMPRESSION: Large effusion with suspected patellar fracture. Further evaluation with patellar views may be obtain ed. Reviewed by: Brit Gilliland MD on 10/02/2023 4:54 PM PDT Approved by: Brit Gilliland MD on 10/02/2023 4:54 PM PDT Station ID: [id number]
--- NOTE | 2023-10-02 17:08 | CT Report ---
PROCEDURE: Head WO INDICATIONS: fall, pain TECHNIQUE: Noncontrast 4.5 mm thick angled axial sections acquired from the foramen magnum to the vertex. For r adiation dose reduction, the following was used: automated exposure control, adjustment of mA and/or kV according to patient size. COMPARISON: CT cervical spine 10/02/2023 FINDINGS: Image quality: Excellent. The ventricular system and cortical sulci demonstrate atrophy, consistent for patient's stated age. There are areas of hypodensity in the periventricular and subcortical white matter. There is no acut e intra or extra-axial fluid collection. No acute hemorrhage, mass lesion or midline shift. Brainst em is unremarkable. Globes are symmetrical. Sinuses are aerated. Osseous structures are intact. IMPRESSION: 1. No acute intracranial process. 2. Moderate atrophy and chronic microvascular ischemic changes. Reviewed by: Brit Gilliland MD on 10/02/2023 5:06 PM PDT Approved by: Brit Gilliland MD on 10/02/2023 5:06 PM PDT Station ID: [id number]
--- NOTE | 2023-10-02 17:08 | CT Report ---
PROCEDURE: Maxillofacial WO INDICATIONS: fall, pain TECHNIQUE: Noncontrast 1.5 mm thick axial images acquired from the mandible through the frontal sinuses, with co kristin and sagittal reformatting. For radiation dose reduction, the following was used: automated ex posure control, adjustment of mA and/or kV according to patient size. COMPARISON: None. FINDINGS: Image quality: Excellent. Bones and teeth: Orbital john are intact. Sinus john show no fracture or deformity. Nasal bones and septum are intact. Visualized portions of the mandible demonstrate no fractures or subluxation. Zygomatic arches are intact. Pterygoid plates are intact. Visualized portions of the skull base an d auditory canals are intact. Sinuses: Paranasal sinuses are aerated, without fluid levels, mucosal thickening, or mucoceles. Mas toid air cells are aerated. Soft tissues: No edema, masses, or fluid collections. No enlarged lymph nodes. No soft tissue lace rations or debris. Vascular: Visualized vascular structures appear normal in the absence of contrast. Bony vascular fo ramina and canals are intact. IMPRESSION: No visualized fracture. Reviewed by: Brit Gilliland MD on 10/02/2023 5:07 PM PDT Approved by: Brit Gilliland MD on 10/02/2023 5:07 PM PDT Station ID: [id number]
--- NOTE | 2023-10-02 17:10 | CT Report ---
PROCEDURE: Cervical Spine WO INDICATIONS: fall, pain TECHNIQUE: Noncontrast 3 mm thick sections acquired from the skull base to the T4 level. Sagittal and coronal r eformats were then constructed. For radiation dose reduction, the following was used: automated exp osure control, adjustment of mA and/or kV according to patient size. COMPARISON: None. FINDINGS: Image quality: Excellent. Bones: No fractures or dislocations. Visualized superior ribs are intact. Multilevel degenerative changes are present. Soft tissues: Prevertebral soft tissues are normal in thickness. No paravertebral hematomas. No ap ical pneumothoraces. Calcified granulomas are present within the lungs bilaterally. IMPRESSION: Multilevel degenerative changes without visualized fracture. Reviewed by: Brit Gilliland MD on 10/02/2023 5:08 PM PDT Approved by: Brit Gilliland MD on 10/02/2023 5:08 PM PDT Station ID: [id number]
[2023-10-02 18:00] VITALS: BP 164/92; O2SAT 99
== END 2023-10-02 17:57 | disposition home or self-care (01) ==
LOC: EDUNIT# → ED 16:15
DX: S82.001A Unspecified fracture of right patella, initial encounter for closed fracture (principal); S00.12XA Contusion of left eyelid and periocular area, initial encounter; W01.0XXA Fall on same level from slipping, tripping and stumbling without subsequent striking against object, initial encounter; I10 Essential (primary) hypertension; E11.9 Type 2 diabetes mellitus without complications; Z79.84 Long term (current) use of oral hypoglycemic drugs; Z79.899 Other long term (current) drug therapy
CPT/HCPCS: 99284

== ENCOUNTER 2023-10-06 15:50 | Outpatient (CLI) | payer MEDICARE, OTHER ==
--- NOTE | 2023-10-07 15:21 | XRAY Report ---
PROCEDURE: Knee 4+V RT INDICATIONS: KNEE PX,RT TECHNIQUE: 4 views of the knee(s) were acquired. COMPARISON: Right knee radiograph on October 02, 2023. FINDINGS: Bones: Similar appearance of mildly displaced transverse patellar fracture. No significant interval callus formation. Stable alignment with lateral patellar tilt and subluxation. No suspicious bony le sions. Right knee demonstrate severe lateral and patellofemoral and mild medial compartment joint spa ce narrowing and juxta-articular osteophytosis. Left knee demonstrate mild medial and lateral compart ment joint space narrowing and juxta-articular osteophytosis. Chondrocalcinosis in the bilateral medi al compartments. Soft tissues: Large knee joint effusion. No suspicious soft tissue calcifications or masses. IMPRESSION: 1.Similar appearance of mildly displaced transverse patellar fracture. Stable alignment with lateral patellar tilt and subluxation. 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 3.Chondrocalcinosis in the bilateral medial compartments. Reviewed by: Shivam Yin MD on 10/07/2023 3:20 PM PDT Approved by: Shivam Yin MD on 10/07/2023 3:20 PM PDT Station ID: [id number]
== END 2023-10-06 15:51 | disposition home or self-care (01) ==
LOC: DI 15:50
PROVIDERS: ATTEND Orthopaedic Surgery
DX: S82.031A Displaced transverse fracture of right patella, initial encounter for closed fracture (principal); M17.11 Unilateral primary osteoarthritis, right knee; M11.261 Other chondrocalcinosis, right knee

== ENCOUNTER 2023-10-25 13:04 | Outpatient (CLI) | payer MEDICARE, OTHER ==
[2023-10-25 18:22] LABS: BASOPHILS % (AUTO) 0.8 %; EOSINOPHILS # (AUTO) 0.2 10^3/uL (0.0-0.7); EOSINOPHILS % (AUTO) 3.1 %; HCT - HEMATOCRIT 38.4 % (37.0-47.0); HGB - HEMOGLOBIN 11.9 g/dL (12.0-16.0); LYMPHOCYTES # (AUTO) 0.6 10^3/uL (1.5-3.5); LYMPHOCYTES % (AUTO) 13.2 %; MEAN CORPUSCULAR HEMOGLOBIN 27.3 pg (27.0-31.0); MEAN CORPUSCULAR VOLUME 88.1 fL (81.0-99.0); MEAN PLATELET VOLUME 11.3 fL (7.9-10.8); MONOCYTES # (AUTO) 0.4 10^3/uL (0.0-1.0); MONOCYTES % (AUTO) 7.3 %; NEUTROPHILS # (AUTO) 3.6 10^3/uL (1.5-6.6); NEUTROPHILS % (AUTO) 75.2 %; PLT - PLATELET COUNT 192 10^3/uL (130-450); RED BLOOD COUNT 4.36 10^6/uL (4.20-5.40); RED CELL DISTRIBUTION WIDTH 13.1 % (12.0-15.0); WHITE BLOOD COUNT 4.8 x10^3/uL (4.8-10.8)
[2023-10-25 18:36] LABS: MAGNESIUM 1.5 mg/dL (1.7-2.3)
[2023-10-25 18:42] LABS: ALBUMIN 4.4 g/dL (3.2-5.5); ALBUMIN/GLOBULIN RATIO 1.8 (1.0-2.2); BILIRUBIN,TOTAL 0.5 mg/dL (0.2-1.0); CALCIUM 9.5 mg/dL (8.5-10.3); CREATININE 1.5 mg/dL (0.6-1.3); POTASSIUM 4.2 mmol/L (3.5-4.5); TOTAL PROTEIN 6.9 g/dL (6.4-8.9)
[2023-10-25 18:56] LABS: THYROID STIMULATING HORMONE 0.26 uIU/mL (0.34-5.60)
[2023-10-25 20:36] LABS: ESTIMATED AVERAGE GLUCOSE 143 mg/dL (70-100); HEMOGLOBIN A1c% 6.6 % (4.27-6.07)
== END 2023-10-25 13:05 | disposition home or self-care (01) ==
LOC: LAB.N 13:04
PROVIDERS: ATTEND Physician Assistant Medical
DX: E11.9 Type 2 diabetes mellitus without complications (principal); R55 Syncope and collapse; E03.9 Hypothyroidism, unspecified
CPT/HCPCS: 36415; 80053; 83036; 83735; 84439; 84443; 85025

== ENCOUNTER 2023-11-04 13:57 | Outpatient (CLI) | payer MEDICARE, OTHER ==
--- NOTE | 2023-11-04 17:41 | XRAY Report ---
PROCEDURE: Knee 4+V RT INDICATIONS: UNSPECIFIED FRACTURE OF RT PATELLA TECHNIQUE: 3 views of the knee(s) were acquired. COMPARISON: Patella radiograph on October 06, 2023. FINDINGS: Bones: No fractures or dislocations. Transverse, mildly displaced fracture of the patella demonstrat es no significant callus formation. Stable alignment with lateral patellar tilt and subluxation. Marisela re lateral and patellofemoral and mild medial compartment joint space narrowing and juxta-articular o steophytosis. No suspicious bony lesions. . Chondrocalcinosis in the medial and lateral compartments. Diffuse osseous demineralization. Soft tissues: Moderate knee joint effusion. No suspicious soft tissue calcifications or masses. IMPRESSION: 1.Similar appearance of mildly displaced transverse patellar fracture. No significant interval osseou s healing. Stable alignment. 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 3.Chondrocalcinosis in the medial and lateral compartments. Reviewed by: Shivam Yin MD on 11/04/2023 5:40 PM PDT Approved by: Shivam Yin MD on 11/04/2023 5:40 PM PDT Station ID: [id number]
== END 2023-11-04 13:58 | disposition home or self-care (01) ==
LOC: DI 13:57
PROVIDERS: ATTEND Orthopaedic Surgery
DX: S82.001D Unspecified fracture of right patella, subsequent encounter for closed fracture with routine healing (principal); M17.11 Unilateral primary osteoarthritis, right knee; M11.261 Other chondrocalcinosis, right knee

== ENCOUNTER 2023-11-25 13:26 | Outpatient (CLI) | payer MEDICARE, OTHER ==
--- NOTE | 2023-11-25 14:53 | XRAY Report ---
PROCEDURE: Knee Standing RT INDICATIONS: UNSPECIFIED FRACTURE OF RIGHT PATELLA, INITIAL EN TECHNIQUE: 4 views of the knee(s) were acquired. COMPARISON: None. FINDINGS: Bones: Stable mildly displaced fracture of the patella. Soft tissues: Large knee joint effusion. No suspicious soft tissue calcifications or masses. IMPRESSION: Unchanged patellar fracture. Reviewed by: Topher Ibanez MD on 11/25/2023 2:52 PM PDT Approved by: Topher Ibanez MD on 11/25/2023 2:52 PM PDT Station ID: [id number]
== END 2023-11-25 13:27 | disposition home or self-care (01) ==
LOC: DI 13:26
PROVIDERS: ATTEND Orthopaedic Surgery
DX: S82.001A Unspecified fracture of right patella, initial encounter for closed fracture (principal)

== ENCOUNTER 2024-01-06 13:31 | Outpatient (CLI) | payer MEDICARE, OTHER ==
--- NOTE | 2024-01-06 18:57 | XRAY Report ---
PROCEDURE: Knee 4+V RT INDICATIONS: UNSPECIFIED FX OF RT PATELLA TECHNIQUE: 4 views of the knee(s) were acquired. COMPARISON: 11/15/2023 FINDINGS: Bones: Increased callus formation about a displaced transverse patellar fracture. Redemonstration of degenerative changes. No suspicious bony lesions. Soft tissues: Small knee joint effusion. No suspicious soft tissue calcifications or masses. IMPRESSION: Healing transverse patellar fracture. Reviewed by: Jay Sawyer MD on 01/06/2024 6:55 PM PDT Approved by: Jay Sawyer MD on 01/06/2024 6:55 PM PDT Station ID: [id number]
== END 2024-01-06 13:32 | disposition home or self-care (01) ==
LOC: DI 13:31
PROVIDERS: ATTEND Orthopaedic Surgery
DX: S82.031D Displaced transverse fracture of right patella, subsequent encounter for closed fracture with routine healing (principal)

== ENCOUNTER 2024-01-31 12:31 | Outpatient (CLI) | payer MEDICARE, OTHER ==
[2024-01-31 19:39] LABS: THYROID STIMULATING HORMONE 0.75 uIU/mL (0.34-5.60)
[2024-01-31 19:41] LABS: CALCIUM 9.8 mg/dL (8.5-10.3); CREATININE 1.5 mg/dL (0.6-1.3); MAGNESIUM 1.7 mg/dL (1.7-2.3); POTASSIUM 4.4 mmol/L (3.5-4.5)
[2024-01-31 23:27] LABS: ESTIMATED AVERAGE GLUCOSE 143 mg/dL (70-100); HEMOGLOBIN A1c% 6.6 % (4.27-6.07)
== END 2024-01-31 12:32 | disposition home or self-care (01) ==
LOC: LAB.N 12:31
PROVIDERS: ATTEND Physician Assistant Medical
DX: E11.9 Type 2 diabetes mellitus without complications (principal); E83.42 Hypomagnesemia
CPT/HCPCS: 36415; 80048; 83036; 83735; 84443